=== PATIENT | female | born 1995 | race African-American/Black ===

== ENCOUNTER 2017-09-07 13:46 | Emergency (ER) | payer MEDICAID, OTHER ==
[~2017-09-07] VITALS: Ht 177.8 cm; Wt 72.6 kg
[~2017-09-07 13:46] MED LIST: KEFLEX500 MG ORAL; PHENAZOPYRIDIN100 MG ORAL
[2017-09-07] MEDS ORDERED: NKM (14:28)
--- NOTE | 2017-09-07 14:32 | Emergency Room Report ---
History of Present Illness General Chief Complaint: General Complaint Source: Patient Present Illness HPI 22 yo female patient presents to ER complaining of cough with green sputum x1 week. Reports saw primary care doctor 1 week ago for similar symptoms, prescribed Keflex and promethazine-dm. Reports cough still persistent. Reports chest pain and generalized body aches with cough, reports pain is reproducible. Denies difficulty breathing. Denies hematuria. Denies fever, shortness of breath, abdominal pain, nausea, vomiting, diarrhea. Denies hx of asthma or cardiovascular disease. Denies smoking, reports smokers in household. Allergies: Coded Allergies: No Known Allergies (Unverified , 12/15/15) Patient History Past Medical History: see triage record Last Menstrual Period: 08/18/17 Reviewed Nursing Documentation: PMH: Agreed; PSxH: Agreed Nursing Documentation-PMH Past Medical History: No Stated History Review of Systems All Other Systems: negative except mentioned in HPI Physical Exam Vital Signs Date Time Temp Pulse Resp B/P (MAP) Pulse Ox O2 Delivery O2 Flow Rate FiO2 09/07/17 14:26 98.7 80 16 112/66 96 Room Air 98.8 Sp02 EP Interpretation: reviewed, normal General Appearance: well appearing, no apparent distress, alert, GCS 15, non- toxic Head: normocephalic, atraumatic Eyes: bilateral eye normal inspection, bilateral eye PERRL ENT: hearing grossly normal, normal pharynx, no angioedema, normal voice, uvula midline, moist mucus membranes Neck: full range of motion Respiratory: lungs clear, no rhonchi, no respiratory distress, no accessory muscle use, no wheezing, speaking full sentences, other - decreased breath sounds, chest TTP Cardiovascular #1: regular rate, rhythm, no edema Musculoskeletal: back normal, digits/nails normal, gait/station normal, normal range of motion, non-tender Neurologic: alert, oriented x3, responsive, motor strength/tone normal, sensory intact Psychiatric: mood/affect normal Skin: no rash Lymphatic: no adenopathy Medical Decision Making PA Attestation Dr. Urrutia is my supervising Physician whom patient management has been discussed with. Diagnostic Impression: Primary Impression: Cough ER Course Pt presents to ED c/o asthma symptoms. DDX considered but are not limited to asthma, viral URI, influenza, bronchitis. No crackles or fever, recent treatment with abx, low suspicion for pneumonia. No hemoptysis, no calf swelling, no recent immobilization,. Low suspicion for PE per Well's criteria. On PE, chest is TTP; chest pain likely musculoskeletal in nature secondary to cough or inflammation of pericardium, does not require cardiac workup at this time. Patient instructed to take NSAIDs as needed for pain symptoms. VITAL SIGNS are WNL, patient is afebrile. Ordered breathing treatment and medication. ER COURSE Albuterol/Atrovent breathing treatment provided. Following treatment patient states no longer having difficulty with breathing. Patient is resting comfortably in no acute distress. Cough likely related to recent illness. Followup with primary care provider for further evaluation and treatment. Provided with inhaler and prednisone at discharge, followup with primary care provider for evaluation of breathing symptoms. Recent illness and treatment with abx, does not require abx at this time. Avoid people smoking, may exacerbate or prolong symptoms. Take promethazine-DM cough medication at night for difficulty sleeping due to cough symptoms. DISCHARGE: -Rx given for Prednisone. -Rx provided for Albuterol MDI. -Rx provided for Tylenol for pain symptoms At this time pt is stable for d/c to home. Patient is resting comfortably in no acute distress, nontoxic appearing, able to answer questions without difficulty. Patient to take medications as instructed Will provide with patient care instructions and any necessary prescriptions. Care plan and follow-up instructions provided. Patient instructed to follow-up with primary care provider in 3 - 5 days. Patient questions asked and answered. Patient reports understanding and agreement to treatment plan. ER precautions given. Patient instructed to return to ER immediately for any new or worsening of symptoms including but not limited to increasing SOB, persistent fever. Last Vital Signs Date Time Temp Pulse Resp B/P (MAP) Pulse Ox O2 Delivery O2 Flow Rate FiO2 09/07/17 14:26 98.7 80 16 112/66 96 Room Air 98.8 Disposition: HOME, SELF-CARE Condition: Stable Scripts Albuterol Sulfate* (ALBUTEROL SULFATE MDI*) 8.5 Gm Hfa.aer.ad 2 PUFF INH Q6H, #1 INH 0 Refills Prov: Magdaleno Corral P.A. 09/07/17 Acetaminophen* (TYLENOL EXTRA STRENGTH*) 500 Mg Tablet 500 MG ORAL Q8H PRN for Prn Headache/Temp > 101, #30 TAB 0 Refills Prov: ShaynaMagdaleno 09/07/17 Prednisone* (PREDNISONE*) 20 Mg Tablet 40 MG ORAL DAILY for 5 Days, #10 TAB Prov: Magdaleno Corral 09/07/17 Patient Instructions: Acute Bronchitis, [id number], Cough, Adult, Easy-to- Read, Smoking Cessation, Tips for Success, [id number] Additional Instructions: Followup with primary care provider in 3 -5 days for further treatment and referral. Take Tylenol for pain symptoms. Take medications as directed. Patient questions asked and answered. ER precautions given, patient instructed to return to ER immediately for any new or worsening of symptoms. Magdaleno Corral Sep 07, 2017 14:32
[2017-09-07] MEDS: Albuterol/Ipratropium 3ml neb HHN ONE (15:18)
[2017-09-07] MEDS ORDERED: PREDNISONE20 MG ORAL (15:40)
[2017-09-07] MEDS ORDERED: ALBUTEROL SULF8.5 GM INH (15:40)
[2017-09-07] MEDS ORDERED: TYLENOL EXTRA500 MG ORAL (15:40)
[2017-09-07 15:45] VITALS: BP 110/64
== END 2017-09-07 15:45 | disposition home or self-care (01) ==
LOC: EMR 14:35
DX: R05 Cough (principal)
CPT/HCPCS: 94640; 94664; 99284; J7620